=== PATIENT | female | born 1965 | race Caucasian/White ===

== ENCOUNTER → 2016-12-29 | Outpatient (CLI) | payer OTHER ==
--- NOTE | ~2016-12-29 | MR103 ---
[facility] A Service [facility] RADIOLOGY TEXT RESULTS PATIENT: ENRIQUE ANDERSON LOCATION: [facility] : 61 UNIT #: [id number] AGE: [address]: JAIRO BUTLER SEX: F ORDER DR: [id number] [place] [id number] O MR#: [id number] Acc #: [id number] NAME: ENRIQUE ANDERSON : 1965 SEX: F STUDY DATE/TIME: 12/29/2016 16:57 UNIT: [facility] ROOM: STUDY DESCRIPTION: MR Knee Wo Contrast Lt Attending Physician: Jairo Butler Aprn Ordering Physician: Jairo Butler Aprn Primary Care Physician: Jairo Butler Aprn MRI CENTER REPORT This report is preliminary unless electronic signature is present. EXAM Left knee MRI without contrast 12/29/2016 HISTORY 51-year-old female with left knee pain for 1 year. No specific injury. No prior left knee surgery. COMPARISON Left knee x-rays 06/17/2013, 02/14/2016, 12/27/2016. TECHNIQUE Routine unenhanced multiplanar, multisequence high field MR imaging of the left knee was performed. FINDINGS There is a longitudinal horizontal oblique undersurface tear at the junction of the posterior horn/body segment of the medial meniscus, extending into the mid body segment. Lateral meniscus is intact. Cruciate and collateral ligaments are intact. Extensor mechanism intact. No significant joint effusion. No popliteal cyst. Patellofemoral articular cartilage is intact. Medial and lateral compartment articular cartilage is intact. Bone marrow signal is within normal limits. There is some minimal edema noted in the visualized soleus and medial and lateral heads of the gastrocnemius. This is nonspecific and could be secondary to muscle inflammation or low grade strain. IMPRESSION 1. Longitudinal horizontal oblique undersurface tear of the knee at the [facility] A Service [facility] RADIOLOGY TEXT RESULTS PATIENT: ENRIQUE ANDERSON LOCATION: [facility] : 61 UNIT #: [id number] AGE: [address]: JAIRO BUTLER SEX: F ORDER DR: junction of the posterior horn/body segment medial meniscus, which extends into the mid body segment. 2. No acute ligament injury or significant articular cartilage loss. 3. Minimal edema noted in the visualized soleus and medial and lateral heads of the gastrocnemius. This is nonspecific and could be secondary to low grade inflammation versus a low grade muscle strain. 1. Dictated by... Clemente Brown M.D. THIS IS AN ELECTRONICALLY VERIFIED REPORT Clemente Brown M.D. at 12/31/2016 8:09 AM Mary TD: 12/31/2016 07:21 JOB #: [id number] MRI CENTER REPORT Page 1 of 1
== END | disposition home or self-care (01) ==
LOC: SMRI 16:39
DX: M25.562 Pain in left knee (principal); M23.222 Derangement of posterior horn of medial meniscus due to old tear or injury, left knee; R60.0 Localized edema
CPT/HCPCS: 73721